=== PATIENT | male | born 1955 | race Caucasian/White ===

== ENCOUNTER 2017-11-09 08:33 | Day surgery (SDC) | payer MEDICAID ==
[2017-11-09 09:05] VITALS: BMI 26.7
--- NOTE | 2017-11-09 09:48 | CP.SDSHP ---
Same Day Surgery H & P - History Proposed Procedure: colonoscopy - Previous Medical/Surgical History Cardiac: Hypertension - Allergies Allergies: Allergies Penicillins Allergy (Intermediate, Verified 11/09/17 09:05) RASH - Physical Exam Vital Signs: Vital Signs 11/09/17 08:53 Temperature 97.4 F L Pulse Rate 56 L Respiratory 19 Rate Blood Pressure 120/65 O2 Sat by Pulse 99 Oximetry - Date & Time Date: 11/09/17 Time: 09:48 Short Stay Discharge - Short Stay Discharge Admitting Diagnosis/Reason for Visit: ENCOUNTER FOR SCREENING FOR MALIGNANT NEOPLASM OF Disposition: HOME/ ROUTINE
[2017-11-09] MEDS ORDERED: Lidocaine 2% Jelly (5 ml) TOP ONE (10:11)
[2017-11-09] MEDS ORDERED: Lidocaine Hydrochloride 5 ML INJ ONE (10:16)
[2017-11-09] MEDS ORDERED: Propofol 10 mg/ml Inj (20 ML) ONE (10:16)
[2017-11-09] MEDS ORDERED: Midazolam 2 MG/2 ML VIAL ONE (10:16)
[2017-11-09] MEDS ORDERED: Simethicone 40 mg/0.6 ml Liquid (30 ml) ONE ×2 (10:30)
[2017-11-09 11:03] VITALS: TEMP 97
[2017-11-09 11:08] VITALS: O2SAT 100
[2017-11-09 11:44] VITALS: BP 108/67; PULSE 55; RESP 17
== END 2017-11-09 11:50 | disposition home or self-care (01) ==
LOC: C.ENDO 08:33
PROVIDERS: ATTEND Colon & Rectal Surgery
DX: Z12.11 Encounter for screening for malignant neoplasm of colon (principal); D12.0 Benign neoplasm of cecum; K64.4 Residual hemorrhoidal skin tags
CPT/HCPCS: 45380; 82948; 88305; J2704; J7040